=== PATIENT | female | born 1975 | race Hispanic/Latino ===

== ENCOUNTER 2017-05-09 10:02 | Emergency (ER) | payer BC ==
[2017-05-09 10:13] VITALS: BMI 30.7
--- NOTE | 2017-05-09 10:32 | ED PDOC ---
HPI: General Adult Time Seen by Provider: 05/09/17 10:14 Chief Complaint (Nursing): Cough, Cold, Congestion History Per: Patient Additional Complaint(s): Pt. states for the past 2-3 weeks she's had a cough productive of green sputum. Pt. states symptoms began after returning from the [facility]. States that she had a refill for a Z-pack which she took last week. Reports cough has improved but is still present. 3-4 days ago she developed b/l chest pain which is still productive of green sputum. Chest pain is worse with coughing but has been constant. Denies hemoptysis, SOB, palpitations, hx of DVT or PE, leg pain, hormonal therapy, sick contacts, fever. Past Medical History Reviewed: Historical Data, Nursing Documentation, Vital Signs Vital Signs: Last Vital Signs Temp 98.2 F 05/09/17 14:49 Pulse 87 05/09/17 14:49 Resp 18 05/09/17 14:49 BP 128/67 05/09/17 14:49 Pulse Ox 100 05/09/17 14:49 - Surgical History Surgical History: No Surg Hx - Family History Family History: States: No Known Family Hx - Social History Current smoker - smoking cessation education provided: No Ex-Smoker (has not smoked in the last 12 months): No - Home Medications Home Medications: Ambulatory Orders Medication Instructions Recorded Naproxen [Naprosyn] 500 mg PO BID PRN #30 tab 05/09/17 - Allergies Allergies/Adverse Reactions: Allergies Allergy/AdvReac Type Severity Reaction Status Date / Time oxycodone Allergy RASH Verified 05/09/17 10:19 Review of Systems ROS Statement: Except As Marked, All Systems Reviewed And Found Negative Cardiovascular: Positive for: Chest Pain Respiratory: Positive for: Cough Physical Exam - Reviewed Nursing Documentation Reviewed: Yes Vital Signs Reviewed: Yes - Physical Exam Appears: Positive for: Well, Non-toxic, No Acute Distress Head Exam: Positive for: ATRAUMATIC, NORMAL INSPECTION, NORMOCEPHALIC Skin: Positive for: Normal Color, Warm. Negative for: Rash Eye Exam: Positive for: EOMI, Normal appearance, PERRL ENT: Positive for: Normal ENT Inspection Neck: Positive for: Normal, Painless ROM Cardiovascular/Chest: Positive for: Regular Rate, Rhythm, Chest Non Tender Respiratory: Positive for: Normal Breath Sounds. Negative for: Wheezing, Respiratory Distress Gastrointestinal/Abdominal: Positive for: Normal Exam, Soft. Negative for: Tenderness Back: Positive for: Normal Inspection Extremity: Positive for: Normal ROM Neurologic/Psych: Positive for: Alert, Oriented. Negative for: Aphasia, Facial Droop - Laboratory Results Result Diagrams: 05/09/17 11:30 05/09/17 11:30 - ECG ECG: Positive for: Interpreted By Me ECG Rhythm: Positive for: Sinus Rhythm. Negative for: ST/T Changes Rate: 76 O2 Sat by Pulse Oximetry: 97 - Radiology X-Ray: Interpreted by Me (CXR) X-Ray Interpretation: No Acute Disease - Progress ED Course And Treament: Labs ordered. CXR ordered. 1257 D-Dimer: 320 CTA chest w/ IV contrast ordered. Pt. offered pain meds but refused at this time. 1430 CTA chest w/ IV contrast: Unremarkable CT pulmonary angiogram. No pulmonary embolus. Pt. informed of results and instructed to f/u with Dr. Newberry for further evaluation and to return to ED immediately if symptoms persist or worsen. Disposition - Clinical Impression Clinical Impression: Cough - Patient ED Disposition Is Patient to be Admitted: No - Disposition Disposition: Routine/Home Disposition Time: 14:30 Condition: STABLE Prescriptions: Naproxen [Naprosyn] 500 mg PO BID PRN #30 tab PRN Reason: Pain Instructions: Chest Pain (ED) Forms: [employer] (Slovak) Print Language: [place]OT[place] Wells Criteria for PE - Wells Criteria for Pulmonary Embolism Clinical Signs and Symptoms of DVT: No P.E is #1 Diagnosis, or Equally Likely: No Heart Rate >100: No Immobilization at least 3 days;Surgery previous 4 weeks: Yes Previous, objectively diagnosed PE or DVT: No Hemoptysis: No Malignancy w/treatment within 6 months, or palliative: No Total Score: 1.5
[2017-05-09 11:43] LABS: BASO % 0.3 % (0.0-2.0); EOS # 0.1 K/uL (0.0-0.7); EOS % 1.6 % (0.0-4.0); HEMATOCRIT 42.4 % (34.0-47.0); LYMPH # 1.8 K/uL (1.0-4.3); LYMPH % 21.6 % (20.0-40.0); MEAN CELL VOLUME 81.4 fl (81.0-99.0); MEAN CORPUSCULAR HEMOGLOBIN 27.7 pg (27.0-31.0); MEAN CORPUSCULAR HGB CONC 34.1 g/dL (33.0-37.0); MEAN PLATELET VOLUME 8.6 fl (7.2-11.7); MONO # 0.9 K/uL (0.0-0.8); NEUT # 5.5 K/uL (1.8-7.0); NEUT % 65.5 % (50.0-75.0); NRBC % 0.1 % (0.0-0.0); RED CELL DISTRIBUTION WIDTH 13.1 % (11.5-14.5); WHITE BLOOD COUNT 8.4 K/uL (4.8-10.8)
[2017-05-09 11:50] LABS: ALB/GLOB RATIO 1.2 (1.0-2.1); ALKALINE PHOSPHATASE 58 U/L (38-126); ALT/SGPT 55 U/L (9-52); AST/SGOT 27 U/L (14-36); BILIRUBIN,TOTAL 0.7 mg/dl (0.2-1.3); BLOOD UREA NITROGEN 15 mg/dl (7-17); CALCIUM 9.5 mg/dL (8.4-10.2); CARBON DIOXIDE 26 mmol/L (22-30); CHLORIDE 106 mmol/L (98-107); GFR AFRICAN-AMERICAN > 60; GLUCOSE,RANDOM 96 mg/dL (65-105); POTASSIUM 4.2 MMOL/L (3.6-5.0); SODIUM 140 mmol/l (132-148); TOTAL PROTEIN 7.9 G/DL (6.3-8.2)
--- NOTE | 2017-05-09 12:41 | CARD ---
APPROVED REPORT EKG Measurement Heart [id number] <Conclusion> Normal sinus rhythm Normal ECG
[2017-05-09] MEDS ORDERED: Iodixanol 320 MG/ML 100 ML BOTTLE IV ONE (13:02)
[2017-05-09] MEDS ORDERED: Sodium Chloride 0.9% 100 ML ONE (13:03)
--- NOTE | 2017-05-09 14:32 | CT ---
PROCEDURE: CT Chest with contrast (Pulmonary Angiogram) HISTORY: chest pain, elevated d-dimer COMPARISON: None available. TECHNIQUE: Axial computed tomography images were obtained of the chest in the pulmonary arterial phase of enhancement. Coronal and sagittal reformatted images were created and reviewed. Intravenous contrast dose: Radiation dose: Total exam DLP = mGy-cm. This CT exam was performed using one or more of the following dose reduction techniques: Automated exposure control, adjustment of the mA and/or kV according to patient size, and/or use of iterative reconstruction technique. FINDINGS: PULMONARY ARTERIES: Unremarkable. No pulmonary embolism. AORTA: No acute findings. No thoracic aortic aneurysm. LUNGS: Unremarkable. No nodule, mass or pulmonary consolidation. PLEURAL SPACES: Unremarkable. No effusion or pneuomothorax. HEART: Unremarkable. No cardiomegaly. No significant pericardial effusion. LYMPH NODES: No lymphadenopathy. BONES, CHEST WALL: Unremarkable. No fracture or destructive lesion OTHER FINDINGS: Unremarkable. IMPRESSION: Unremarkable CT pulmonary angiogram. No pulmonary embolus.
[2017-05-09 14:50] VITALS: BP 128/67; RESP 18; TEMP 98.2
--- NOTE | 2017-05-09 14:50 | RAD ---
HISTORY: cough; chest pain COMPARISON: No prior. TECHNIQUE: Chest PA and lateral FINDINGS: LUNGS: No active pulmonary disease. PLEURA: No significant pleural effusion identified. No pneumothorax apparent. CARDIOVASCULAR: Normal. OSSEOUS STRUCTURES: No significant abnormalities. VISUALIZED UPPER ABDOMEN: Normal. OTHER FINDINGS: None. IMPRESSION: No active disease.
[2017-05-09 17:40] VITALS: PULSE 76; O2SAT 97
== END 2017-05-09 14:50 | disposition home or self-care (01) ==
LOC: H.ER 10:02
DX: R05 Cough (principal); Z87.891 Personal history of nicotine dependence; Z88.5 Allergy status to narcotic agent
CPT/HCPCS: 71020; 71275; 80053; 81025; 84484; 85025; 85378; 93005; 99282; Q9967